=== PATIENT | female | born 1945 | race Caucasian/White ===

== ENCOUNTER 2022-10-10 11:54 | Emergency (ER) | payer MEDICARE, OTHER ==
[2022-10-10 12:06] VITALS: BP 118/85
[2022-10-10] MEDS ORDERED: VENLAFAXINE ER 75 MG CAPSULE PO STA (12:15)
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
== END 2022-10-10 13:34 | disposition home or self-care (01) ==
LOC: ED 11:54
DX: S63.501A Unspecified sprain of right wrist, initial encounter (principal); V89.2XXA Person injured in unspecified motor-vehicle accident, traffic, initial encounter; F19.939 Other psychoactive substance use, unspecified with withdrawal, unspecified
CPT/HCPCS: 73090; 73110; 99283; A9270